=== PATIENT | male | born 1940 | race Caucasian/White ===

== ENCOUNTER 2017-03-07 16:06 | Inpatient (IN) | payer OTHER, BC ==
[~2017-03-07] VITALS: Ht 177.8 cm; Wt 74.3 kg
[~2017-03-07 16:06] MED LIST: ADULT LOW DOSE81 M1 PO; ASPIR-LOW81 MG PO; CARDURA2 M1 PO; DOXAZOSIN MESYLA2 MG PO; FISH OIL 1,2001 EAC4 PO; GABAPENTIN300 MG PO; GLUCOVANCE 5-51 EACH PO; HYDROCHLOROTHIA25 MG PO; HYZAAR 100-21 TABLET PO; LANTUS 10100 UNITS/ SC; LANTUS 3 M100 UNITS1 SC; LANTUS100 UNIT/1 SQ; LEVAQUIN750 MG PO; LEVOFLOXACIN750 MG PO; LOSARTAN-HCTZ1 EAC1 PO; METAMUCIL POWD798 GM PO; METAMUCIL POWD822 G1 PO; NEURONTIN300 MG PO; NOVOLOG 10100 UNITS/ SC; NOVOLOG PE100 UNITS/ SC; NOVOLOG100 UNIT/1 SQ; OCUVITE TABLET1 EACH PO; OMEGA 3-6-91200 MG PO; PROAIR HFA8.5 GM IH; REGLAN5 MG PO; SIMVASTATIN40 MG PO; SIMVASTATIN80 M1 PO; ST. JOSEPH ASPI81 MG PO; TYLENOL EXTRA500 MG PO; TYLENOL WITH C1 EACH PO; VITAMIN D250000 UNIT PO; VITAMIN D50000 UNI1 PO; ZESTRIL,PRINIVI20 MG PO; ZOCOR40 MG PO
[2017-03-07 17:59] LABS: HEMATOCRIT 37.9 % (38.0-50.0); MCH 32.3 PG (29.0-34.0); MCV 94.8 FL (86-99); MEAN PLAT.VOLUME 11.3 uM^3 (9.0-12.4); PLATELET COUNT 163 K/uL (156-360); RBC DIS.WIDTH-SD 45.3 % (39-53); WHITE BLOOD COUNT 16.2 K/uL (4.1-10.2)
[2017-03-07 18:13] LABS: CHLORIDE 104 mEq/L (99-109); POTASSIUM 4.2 mEq/L (3.7-5.4); SODIUM 136 mEq/L (136-147)
[2017-03-07 18:14] LABS: GLUCOSE 241 mg/dL (70-99)
[2017-03-07 18:16] LABS: ANION GAP 11 MEQ/L (2-14)
[2017-03-07 18:18] LABS: GFR ESTIMATE (CALCULATED) 48 mL/min/
[2017-03-07 18:19] LABS: UREA NITROGEN (BUN) 37 mg/dL (9-23)
[2017-03-07] MEDS ORDERED: TRESIBA FL100 UNIT/1 SC (22:43)
[2017-03-07] MEDS ORDERED: PRESERVISION A1 EAC2 PO (22:43)
[2017-03-07] MEDS ORDERED: ZANTAC150 MG PO (22:51)
[2017-03-08] VITALS (7 sets, daily range): BP systolic 114–190; BP diastolic 62–86
[2017-03-08 05:04] LABS: EOSINOPHIL COUNT 0.2 K/uL (0-0.3); HEMATOCRIT 33.3 % (38.0-50.0); IMMATURE GRANULOCYTE (%) 0.5 % (0.0-0.7); IMMATURE GRANULOCYTE COUNT 0.1 K/uL; INSTRUMENT ABS NEUTROPHIL CT 8.4 K/uL; LYMPHOCYTE COUNT 1.5 K/uL (1.0-2.8); MCHC 33.3 G/DL (30.0-36.0); MEAN PLAT.VOLUME 11.3 uM^3 (9.0-12.4); MONOCYTE (%) 12.1 % (3-12); MONOCYTE COUNT 1.4 K/uL (0-0.8); NEUTROPHIL (%) 72.2 % (45-76); NEUTROPHIL COUNT 8.4 K/uL (1.8-6.4); PLATELET COUNT 139 K/uL (156-360); RBC DIS.WIDTH-CV 13.2 % (11.8-14.6); RBC DIS.WIDTH-SD 47.1 % (39-53); RED BLOOD COUNT 3.47 M/uL (4.00-5.50); WHITE BLOOD COUNT 11.6 K/uL (4.1-10.2)
[2017-03-08 05:17] LABS: CHLORIDE 112 mEq/L (99-109); POTASSIUM 4.9 mEq/L (3.7-5.4); SODIUM 139 mEq/L (136-147)
[2017-03-08 05:19] LABS: GLUCOSE 210 mg/dL (70-99)
[2017-03-08 05:20] LABS: ANION GAP 5 MEQ/L (2-14)
[2017-03-08 05:22] LABS: GFR ESTIMATE (CALCULATED) > 59 mL/min/
[2017-03-08 05:23] LABS: UREA NITROGEN (BUN) 31 mg/dL (9-23)
[2017-03-08 06:58] LABS: POINT-OF-CARE METER ID UU14117124
[2017-03-08 22:17] LABS: POINT-OF-CARE METER ID UU14117124
[2017-03-09 03:21] VITALS: BP 163/72
[2017-03-09 06:48] LABS: MCH 31.5 PG (29.0-34.0); MCHC 32.7 G/DL (30.0-36.0); MCV 96.4 FL (86-99); MEAN PLAT.VOLUME 11.6 uM^3 (9.0-12.4); PLATELET COUNT 171 K/uL (156-360); RBC DIS.WIDTH-CV 13.2 % (11.8-14.6); RBC DIS.WIDTH-SD 47.5 % (39-53); RED BLOOD COUNT 3.84 M/uL (4.00-5.50); WHITE BLOOD COUNT 10.3 K/uL (4.1-10.2)
[2017-03-09 07:13] LABS: ANION GAP 7 MEQ/L (2-14); CHLORIDE 109 MEQ/L (99-109); GFR ESTIMATE (CALCULATED) > 59 mL/min/; POTASSIUM 4.4 MEQ/L (3.7-5.4); SAMPLE HEMOLYSIS CHECK 0; SAMPLE ICTERIC CHECK 0; SAMPLE LIPEMIA CHECK 0; SODIUM 140 MEQ/L (136-147); UREA NITROGEN (BUN) 32 mg/dL (9-23)
[2017-03-09 07:14] LABS: GLUCOSE 57 mg/dL (70-99)
[2017-03-09 09:03] VITALS: BP 155/70
[2017-03-09 11:32] LABS: POINT-OF-CARE METER ID UU14188577
[2017-03-09 12:20] VITALS: BP 141/80
[2017-03-09 16:55] VITALS: BP 159/72
[2017-03-09 17:01] LABS: POINT-OF-CARE METER ID UU14188577
[2017-03-09 20:25] VITALS: BP 166/77
[2017-03-09 21:32] LABS: POINT-OF-CARE METER ID UU14208753
[2017-03-09 23:35] VITALS: BP 138/63
[2017-03-10 02:55] VITALS: BP 147/81
[2017-03-10 08:22] VITALS: BP 154/71
[2017-03-10 11:37] VITALS: BP 146/78
[2017-03-10 11:41] LABS: POINT-OF-CARE METER ID UU14117124
[2017-03-10 16:27] VITALS: BP 156/78
[2017-03-10 16:50] LABS: POINT-OF-CARE METER ID UU14117124
[2017-03-10 21:34] VITALS: BP 170/81
[2017-03-10 22:09] LABS: POINT-OF-CARE METER ID UU14117124
[2017-03-10 23:16] VITALS: BP 168/98
[2017-03-11 04:21] VITALS: BP 147/82
[2017-03-11 06:10] LABS: POINT-OF-CARE METER ID UU14188577
[2017-03-11 08:22] VITALS: BP 182/84
[2017-03-11 10:06] LABS: HEMATOCRIT 39.2 % (38.0-50.0); MCH 31.3 PG (29.0-34.0); MCHC 32.9 G/DL (30.0-36.0); MCV 95.1 FL (86-99); PLATELET COUNT 201 K/uL (156-360); RBC DIS.WIDTH-CV 12.9 % (11.8-14.6); RBC DIS.WIDTH-SD 45.4 % (39-53); RED BLOOD COUNT 4.12 M/uL (4.00-5.50); WHITE BLOOD COUNT 7.9 K/uL (4.1-10.2)
[2017-03-11 10:30] LABS: GFR ESTIMATE (CALCULATED) > 59 mL/min/
[2017-03-11 10:34] LABS: ANION GAP 8 MEQ/L (2-14); CHLORIDE 104 MEQ/L (99-109); GFR ESTIMATE (CALCULATED) > 59 mL/min/; SAMPLE HEMOLYSIS CHECK 0; SAMPLE ICTERIC CHECK 0; SAMPLE LIPEMIA CHECK 0; SODIUM 139 MEQ/L (136-147); UREA NITROGEN (BUN) 25 mg/dL (9-23)
[2017-03-11 10:36] LABS: GLUCOSE 230 mg/dL (70-99)
[2017-03-11 11:39] VITALS: BP 152/72
[2017-03-11 16:30] VITALS: BP 164/81
[2017-03-11 16:47] LABS: POINT-OF-CARE METER ID UU14188577
[2017-03-11 20:02] VITALS: BP 186/80
[2017-03-11 23:43] VITALS: BP 156/76
[2017-03-12 04:29] VITALS: BP 138/79
[2017-03-12 06:24] LABS: POINT-OF-CARE METER ID UU14188577
[2017-03-12 08:13] VITALS: BP 180/81
[2017-03-12 11:44] VITALS: BP 181/82
[2017-03-12 16:18] VITALS: BP 165/79
[2017-03-12 16:29] LABS: POINT-OF-CARE METER ID UU14117124
== END 2017-03-12 18:05 | disposition home or self-care (01) | DRG 638 ==
LOC: EME 16:06 → 3EAST 22:58 → EDOF 22:58 → ENRESERV 23:01 → 3EAST 03-08 00:43
PROVIDERS: Emergency Medicine; Hospitalist; Internal Medicine
DX: E11.628 Type 2 diabetes mellitus with other skin complications (principal); L03.031 Cellulitis of right toe; B95.61 Methicillin susceptible Staphylococcus aureus infection as the cause of diseases classified elsewhere; N17.9 Acute kidney failure, unspecified; E11.621 Type 2 diabetes mellitus with foot ulcer; I25.10 Atherosclerotic heart disease of native coronary artery without angina pectoris; E78.00 Pure hypercholesterolemia, unspecified; K21.9 Gastro-esophageal reflux disease without esophagitis; I25.2 Old myocardial infarction; Z98.61 Coronary angioplasty status; Z87.891 Personal history of nicotine dependence; E11.42 Type 2 diabetes mellitus with diabetic polyneuropathy; N18.9 Chronic kidney disease, unspecified; I12.9 Hypertensive chronic kidney disease with stage 1 through stage 4 chronic kidney disease, or unspecified chronic kidney disease; E11.22 Type 2 diabetes mellitus with diabetic chronic kidney disease; Z89.411 Acquired absence of right great toe; L03.115 Cellulitis of right lower limb; I70.92 Chronic total occlusion of artery of the extremities
CPT/HCPCS: 73630; 73720; 76937; 80048; 80202; 82565; 82948; 83605; 85025; 85027; 85651; 86140; 87040; 87070; 87075; 87077; 87147; 87186; 87205; 87493; 93005; 93926; 99281; 99285; C1894; J0690; J0692; J1580; J1644; J1815; J1956; J2270; J2405; J3370; J7030; J7050

== ENCOUNTER 2017-04-25 12:05 | Emergency (ER) | payer OTHER, BC ==
[~2017-04-25] VITALS: Ht 177.8 cm; Wt 78.2 kg
[~2017-04-25 12:05] MED LIST changes: +PRESERVISION A1 EAC2 PO; +TRESIBA FL100 UNIT/1 SC; +ZANTAC150 MG PO
[2017-04-25 13:07] LABS: HEMATOCRIT 37.7 % (38.0-50.0); MCHC 33.4 G/DL (30.0-36.0); MCV 95.7 FL (86-99); MEAN PLAT.VOLUME 10.6 uM^3 (9.0-12.4); PLATELET COUNT 197 K/uL (156-360); RBC DIS.WIDTH-CV 12.9 % (11.8-14.6); RBC DIS.WIDTH-SD 45.3 % (39-53); RED BLOOD COUNT 3.94 M/uL (4.00-5.50); WHITE BLOOD COUNT 7.8 K/uL (4.1-10.2)
[2017-04-25 13:17] LABS: CHLORIDE 104 mEq/L (99-109); POTASSIUM 4.3 mEq/L (3.7-5.4); SODIUM 135 mEq/L (136-147)
[2017-04-25 13:19] LABS: GLUCOSE 47 mg/dL (70-99)
[2017-04-25 13:20] LABS: ANION GAP 9 MEQ/L (2-14)
[2017-04-25 13:21] LABS: TOTAL BILIRUBIN 0.3 mg/dL (0.0-1.0)
[2017-04-25 13:22] LABS: ALKALINE PHOSPHATASE 37 IU/L (3-129)
[2017-04-25 13:23] LABS: GFR ESTIMATE (CALCULATED) > 59 mL/min/
[2017-04-25 13:24] LABS: UREA NITROGEN (BUN) 37 mg/dL (9-23)
[2017-04-25 13:30] LABS: TROP-I INTERPRETATION NEGATIVE; TROPONIN-I < 0.01 ng/mL (0.0-0.30)
[2017-04-25] MEDS ORDERED: ZOFRAN4 MG PO (15:44)
[2017-04-25 16:10] VITALS: BP 106/55
== END 2017-04-25 16:23 | disposition home or self-care (01) ==
LOC: EME 12:05
PROVIDERS: Emergency Medicine
DX: R55 Syncope and collapse (principal); R11.2 Nausea with vomiting, unspecified; E11.9 Type 2 diabetes mellitus without complications; Z79.4 Long term (current) use of insulin; E78.5 Hyperlipidemia, unspecified; I10 Essential (primary) hypertension; I25.2 Old myocardial infarction; Z95.5 Presence of coronary angioplasty implant and graft; Z87.891 Personal history of nicotine dependence; Z88.0 Allergy status to penicillin; Z88.8 Allergy status to other drugs, medicaments and biological substances
CPT/HCPCS: 70450; 74177; 80053; 81003; 84484; 85027; 93005; 99281; 99285; J2405; J7030

== ENCOUNTER → 2018-02-16 | Outpatient (CLI) | payer MEDICARE, BC ==
[~2018-02-16] MED LIST changes: +ZOFRAN4 MG PO
== END | disposition home or self-care (01) ==
LOC: CDC 14:15
DX: Z01.810 Encounter for preprocedural cardiovascular examination (principal); I70.25 Atherosclerosis of native arteries of other extremities with ulceration; R94.31 Abnormal electrocardiogram [ECG] [EKG]
CPT/HCPCS: 93000